=== PATIENT | male | born 1960 | race African-American/Black ===

== ENCOUNTER 2024-03-27 23:26 | Emergency (ER) | payer MEDICAID ==
[~2024-03-27] VITALS: Ht 185.4 cm; Wt 136.0 kg
[2024-03-28 00:45] LABS: EOSINOPHILS % 0.7 % (0.0-5.0); HEMATOCRIT. 43.8 % (42.0-52.0); HEMOGLOBIN. 14.5 g/dL (14.0-18.0); LYMPHOCYTES % 17.8 % (20.0-50.0); MEAN CORPUSCULAR HEMOGLOBIN 30.9 pg (28.0-32.0); MEAN CORPUSCULAR HGB CONC 33.1 g/dL (31.0-37.0); MEAN CORPUSCULAR VOLUME 93.4 fL (80.0-94.0); MEAN PLATELET VOLUME 8.1 fl (7.4-10.4); MONOCYTES % 4.6 % (2.0-8.0); NEUTROPHILS % 75.9 % (40.0-76.0); PLATELET 233 x1000/uL (130-400); RED BLOOD CELL COUNT 4.69 mill/uL (4.7-6.1); RED CELL DISTRIBUTION WIDTH 13.4 % (11.6-14.6); WHITE BLOOD COUNT 8.8 x1000/uL (4.5-11.0)
[2024-03-28 00:52] LABS: CHLORIDE 111 mEq/L (98-107); POTASSIUM 3.8 mEq/L (3.5-5.1); SODIUM 141 mEq/L (136-145)
[2024-03-28 00:53] LABS: CARBON DIOXIDE 25 mEq/L (21-32)
[2024-03-28 00:54] LABS: CALCIUM 9.3 mg/dL (8.7-10.4)
[2024-03-28 00:58] LABS: CREATININE 1.1 mg/dL (0.6-1.3); GLUCOSE 82 mg/dL (70-105); UREA NITROGEN BLOOD 10 mg/dL (9-23)
[2024-03-28] MEDS ORDERED: MUPI1OIN4 TP (02:15)
[2024-03-28] MEDS ORDERED: LISI10TA26 MT (02:54)
[2024-03-28 02:58] VITALS: BP 166/110; PULSE 100; RESP 20; TEMP 98.6
== END 2024-03-28 02:50 | disposition home or self-care (01) ==
LOC: ER 23:37
DX: S81.831A Puncture wound without foreign body, right lower leg, initial encounter (principal); I89.0 Lymphedema, not elsewhere classified; L97.919 Non-pressure chronic ulcer of unspecified part of right lower leg with unspecified severity; E11.9 Type 2 diabetes mellitus without complications; X58.XXXA Exposure to other specified factors, initial encounter; Y93.89 Activity, other specified; Y92.89 Other specified places as the place of occurrence of the external cause; Y99.8 Other external cause status
CPT/HCPCS: 99283; 80048; 85025; 36415; Z7610